=== PATIENT | male | born 1945 | race Asian ===

== ENCOUNTER → 2016-07-30 | Outpatient (CLI) | payer OTHER ==
[2016-07-30 09:52] LABS: BASOPHIL % 0.9 % (0-2); PLATELET COUNT 207 x10^3mcL (130-400); RED CELL DISTRIBUTION WIDTH 12.4 % (11.5-14.5)
[2016-07-30 10:21] LABS: ALBUMIN 3.6 g/dL (3.4-5.0); ALKALINE PHOSPHATASE 67 U/L (46-116); ALT/SGPT 20 U/L (16-63); AST/SGOT 14 U/L (15-37); BILIRUBIN DIRECT 0.15 mg/dL (0.0-0.2); BILIRUBIN TOTAL 0.5 mg/dL (0.20-1.00); CALCIUM 8.9 mg/dL (8.5-10.1); CARBON DIOXIDE 30.8 mmol/L (21-32); CHLORIDE SERUM 103 mmol/L (98-107); CHOLESTEROL 154 mg/dL (<200); CHOLESTEROL/HDL RATIO 2.4; CREATININE SERUM 1.1 mg/dL (0.7-1.3); FREE T4 0.91 ng/dL (0.76-1.46); GFR1 > 60 mL/min; GLUCOSE SERUM 138 mg/dL (74-106); HDL CHOLESTEROL 63 mg/dL (40-60); POTASSIUM SERUM 4.4 mmol/L (3.5-5.1); SODIUM SERUM 138 mmol/L (136-145); TOTAL PROTEIN, SERUM 7.1 g/dL (6.4-8.2); TRIGLYCERIDES 65 mg/dL (<150)
== END | disposition home or self-care (01) ==
LOC: LB 09:17
PROVIDERS: Internal Medicine Interventional Cardiology
DX: I10 Essential (primary) hypertension (principal); E78.00 Pure hypercholesterolemia, unspecified
CPT/HCPCS: 84439

== ENCOUNTER → 2017-03-27 | Outpatient (CLI) | payer OTHER | END | disposition home or self-care (01) | LOC: LB 09:18 | DX: R73.9 Hyperglycemia, unspecified (principal) ==